=== PATIENT | female | born 2005 | race Caucasian/White ===

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

== ENCOUNTER → 2024-05-30 | Outpatient (REF) | payer BC ==
[2024-05-30 21:22] LABS: GC DNA AMPLIFICATION NEGATIVE (NEGATIVE)
== END ==
LOC: M LAB REF 16:52
PROVIDERS: ATTEND Family Medicine
DX: Z30.011 Encounter for initial prescription of contraceptive pills (principal)